=== PATIENT | male | born 1990 | race African-American/Black ===

== ENCOUNTER 2016-05-23 09:37 | Emergency (ER) | payer OTHER ==
[~2016-05-23] VITALS: Ht 170.2 cm; Wt 57.0 kg
[~2016-05-23 09:37] MED LIST: CLIN1CAP5 PO; IBUP-232 PO
[2016-05-23 09:42] VITALS: BP 122/74; PULSE 70; RESP 14; TEMP 97.9; O2SAT 99
--- NOTE | 2016-05-23 10:50 | PD ---
HPI Chief Complaint: Skin Problem Time Seen by Provider: 10:49 Travel History International Travel<30 days: No Contact w/Intl Traveler<30days: No Traveled to known affect area: No History of Present Illness HPI 25-year-old male presents to the emergency department for evaluation of "a boil to my butt". Patient states that started 4 days ago. He states he did run a fever approximate 2-3 days ago, but states he has had no fever since. Patient has no chronic medical problems and takes no prescribed medications. He denies any drainage from the area. He has no other complaints at this time. Patient denies any history of abscesses. PFSH Past Medical History Medical History: Denies Significant Hx Past Surgical History Surgical History: No Previous Surgery Social History Alcohol Use: No Tobacco Use: Yes (2 cigarettes a day) Substance Use: No Allergies-Medications (Allergen,Severity, Reaction): Coded Allergies: No Known Allergies (Unverified , 05/23/16) Reported Meds & Prescriptions Reported Meds & Active Scripts Active No Active Prescriptions or Reported Medications Review of Systems Except as stated in HPI: all other systems reviewed are Neg Physical Exam Narrative GENERAL: Well-nourished, well-developed male patient ambulatory. Afebrile., SKIN: Focused skin assessment warm/dry. Patient has an abscess noted to the left lower buttock. This does not extend to the anus. No active drainage. No surrounding erythema. HEAD: Normocephalic. Atraumatic. EYES: No scleral icterus. No injection or drainage. NECK: Supple, trachea midline. No JVD or lymphadenopathy. CARDIOVASCULAR: Regular rate and rhythm without murmurs, gallops, or rubs. RESPIRATORY: Breath sounds equal bilaterally. No accessory muscle use. Lungs sounds are clear to auscultation. GASTROINTESTINAL: Abdomen soft, non-tender, nondistended. MUSCULOSKELETAL: No cyanosis, or edema. Data Data Last Documented VS Vital Signs Date Time Temp Pulse Resp B/P Pulse Ox O2 Delivery O2 Flow Rate FiO2 05/23/16 09:42 97.9 70 14 122/74 99 Orders Wound Culture And Gram Stain (05/23/16 10:50) Lidocai-Epi 1%-1:100,000 Inj (Xylocaine- (05/23/16 11:00) MDM Medical Decision Making Medical Screen Exam Complete: Yes Emergency Medical Condition: Yes Medical Record Reviewed: Yes Differential Diagnosis Abscess versus cellulitis versus rectal abscess Narrative Course 25-year-old male presents to the emergency department for evaluation of an abscess to his buttock. Patient gives verbal consent for incision and drainage. Patient is instructed on proper wound care. He'll be discharged with a prescription for Bactrim and Keflex as well as ibuprofen for pain. Patient is return for any acute worsening of symptoms. He verbalizes agreement and understanding. The patient was discharged in stable condition with instructions, including return instructions and follow up instructions. Procedures Procedure Narrative INCISION AND DRAINAGE OF ABSCESS: The area was prepped and was sterilely draped. A subcutaneous wheal of 1% Xylocaine with epinephrine with a total number 3 mL was used to anesthetize the area. The area was properly anesthetized. A number 11 scalpel was used to make a 1 -cm incision across the area of the abscess. Cultures were obtained. The abscess was drained an irrigated with normal saline. Quarter inch iodoform packing was placed in the wound. Sterile dressing applied. Patient advised to have packing removed in two days. Diagnosis Primary Impression: Abscess Referrals: Primary Care Physician call for appointment Patient Instructions: Abscess (ED), Abscess Incision and Drainage (ED), General Instructions Additional Instructions: Clean twice daily with soap and water and apply [id number] antibiotic ointment. Keep clean and dry. Take antibiotics as directed until gone. Bactrim is free at [facility]. Keflex is $4 at [facility]. Take ibuprofen as directed as needed with food for pain. Follow-up with your primary care physician. Return to the emergency department for any acute worsening of symptoms. Med/Other Pt SpecificInfo: Prescription(s) given Scripts Ibuprofen 800 Mg [id number] Mg PO TID PRN (PAIN SCALE 1 TO 10) #21 TAB Ref 0 Prov:Diana Garber 05/23/16 Cephalexin (Keflex)500 Mg [id number] Mg PO Q6H 10 Days Ref 0 Prov:Diana Garber 05/23/16 Sulfamethoxazole-Trimethoprim (Bactrim DS)800-160 Mg Tab1 Tab PO BID #20 TAB Ref 0 Prov:Diana Garber 05/23/16 Disposition: 01 DISCHARGE HOME Condition: Stable Diana Garber May 23, 2016 10:50
[2016-05-23] MEDS ORDERED: LIDOCAINE 1%/EPINEPHrine 1:100,000 SOLN 20 ML VIAL INFIL ONE (11:00)
[2016-05-23] MEDS ORDERED: IBUP800T23 PO (11:27)
[2016-05-23] MEDS ORDERED: CEPH-460 PO (11:27)
[2016-05-23] MEDS ORDERED: BACT800T5 PO (11:27)
== END 2016-05-23 11:39 | disposition home or self-care (01) ==
LOC: NEPB 09:37
DX: L02.31 Cutaneous abscess of buttock (principal); B95.62 Methicillin resistant Staphylococcus aureus infection as the cause of diseases classified elsewhere; F17.210 Nicotine dependence, cigarettes, uncomplicated
CPT/HCPCS: 10061; 86403; 87070; 87186

== ENCOUNTER 2016-05-27 01:48 | Emergency (ER) | payer SELFPAY ==
[~2016-05-27 01:48] MED LIST changes: +BACT800T5 PO; +CEPH-460 PO; -CLIN1CAP5 PO; -IBUP-232 PO; +IBUP800T23 PO
[2016-05-27 01:50] VITALS: BP 146/85; PULSE 91; RESP 14; TEMP 97.9; O2SAT 96
== END 2016-05-27 05:15 | disposition left against medical advice (07) ==
LOC: NED 05:10
DX: Z53.21 Procedure and treatment not carried out due to patient leaving prior to being seen by health care provider (principal)
CPT/HCPCS: 99281

== ENCOUNTER 2016-05-28 15:00 | Emergency (ER) | payer OTHER ==
[~2016-05-28] VITALS: Ht 160 cm; Wt 52.0 kg
[2016-05-28 15:01] VITALS: BP 126/85; PULSE 74; RESP 17; TEMP 98.4; O2SAT 99
--- NOTE | 2016-05-28 16:07 | PD ---
HPI . left buttocks abscess f/u Chief Complaint: Skin Problem Time Seen by Provider: 16:06 Travel History International Travel<30 days: No Contact w/Intl Traveler<30days: No Traveled to known affect area: No History of Present Illness HPI 25-year-old male here for recheck of his left buttocks abscess. Patient was here on May 23 and received incision and drainage. He did receive packing and was told to follow-up in 48 hours, however he came to the emergency room and there was a 5 hour wait so he decided to leave. Today he is here for recheck. He tells me that the packing may have fallen out, but he is not certain. He admits to some slight drainage from the area, but states he is significantly improved. He denies any pain in the area. He feels good. He is taking all his medications as prescribed. He denies any fever or chills. 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 Reported Meds & Prescriptions Reported Meds & Active Scripts Active No Active Prescriptions or Reported Medications Review of Systems General / Constitutional: No: Fever Eyes: No: Visual changes HENT: No: Headaches Cardiovascular: No: Chest Pain or Discomfort Respiratory: No: Shortness of Breath Gastrointestinal: No: Abdominal Pain Genitourinary: No: Dysuria Musculoskeletal: No: Pain Skin: No Rash Neurologic: No: Weakness Psychiatric: No: Depression Endocrine: No: Polydipsia Hematologic/Lymphatic: No: Easy Bruising Physical Exam Narrative GENERAL: AAO x 3, no acute distress, Well-nourished, well-developed patient. SKIN: Warm and dry. No visible rashes or bruising. Ulises WEST present, left buttocks abscess, healed with very minimal drainage coming from a pinpoint area. It is nontender and no longer indurated. There is no fluctuance. packing not present. HEAD: Normocephalic and atraumatic. EYES: No scleral icterus. No injection or drainage. EOM intact, PERRLA ENT: No nasal drainage noted. Mucous membranes pink. Airway patent. NECK: Supple, trachea midline. No JVD. CARDIOVASCULAR: Regular rate and rhythm without murmurs, gallops, or rubs. RESPIRATORY: Breath sounds equal bilaterally. No accessory muscle use. No rhonchi or rales. GASTROINTESTINAL: Abdomen soft, non-tender, nondistended. EXTREMITIES: No cyanosis or edema. BACK: Nontender without obvious deformity. No CVA tenderness. PSYCH: AAO x 3, normal affect. Data Data Last Documented VS Vital Signs Date Time Temp Pulse Resp B/P Pulse Ox O2 Delivery O2 Flow Rate FiO2 05/28/16 15:01 98.4 74 17 126/85 99 MDM Medical Decision Making Medical Screen Exam Complete: Yes Emergency Medical Condition: Yes Medical Record Reviewed: Yes Differential Diagnosis buttocks abscess, cellulitis, less likely sepsis Narrative Course 25-year-old male here for recheck of his left buttocks abscess. Patient was here on May 23 and received incision and drainage. He did receive packing and was told to follow-up in 48 hours, however he came to the emergency room and there was a 5 hour wait so he decided to leave. Today he is here for recheck. He tells me that the packing may have fallen out, but he is not certain. He admits to some slight drainage from the area, but states he is significantly improved. He denies any pain in the area. He feels good. He is taking all his medications as prescribed. He denies any fever or chills. Patient seen and examined. His abscess is significantly improved. He's been advised continue his antibiotics as prescribed until they're gone. He is been told that these abscesses can recur and he may need to ultimately follow-up with his primary care provider for a referral to either dermatology or surgeon. Advised this issue return to worsens, to return to the emergency room. Patient verbalized understanding of instructions, questions were answered, and thanked me for their care. I advised them if their condition worsens, please return to the nearest emergency room for further care. Diagnosis Primary Impression: Abscess Patient Instructions: General Instructions Additional Instructions: [place] for worsening signs of infection which include increased redness, increased warmth, purulent drainage, increased swelling or streaking. Please return to emergency department if your symptoms return or worsen. Follow up with your primary care provider. Take medications as prescribed. Med/Other Pt SpecificInfo: No Change to Meds Scripts No Active Prescriptions or Reported Meds Disposition: 01 DISCHARGE HOME Condition: Stable Marlene Rivera May 28, 2016 16:06
== END 2016-05-28 17:07 | disposition home or self-care (01) ==
LOC: NETRI 15:00
DX: L02.31 Cutaneous abscess of buttock (principal); Z51.89 Encounter for other specified aftercare
CPT/HCPCS: 99281

== ENCOUNTER 2016-09-16 17:56 | Emergency (ER) | payer SELFPAY ==
[~2016-09-16] VITALS: Ht 170.2 cm; Wt 56.5 kg
[2016-09-16 17:58] VITALS: BP 147/94; PULSE 104; RESP 16; TEMP 99.1; O2SAT 98
== END 2016-09-16 18:55 | disposition left against medical advice (07) ==
LOC: NED 17:56
DX: L98.9 Disorder of the skin and subcutaneous tissue, unspecified (principal)
CPT/HCPCS: 99281